=== PATIENT | male | born 1980 | race Caucasian/White ===

== ENCOUNTER → 2022-01-23 | Outpatient (CLI) | payer OTHER ==
[~2022-01-23] MED LIST: ALLERGY10 M1 PO; AMLODIPINE BESYL5 MG PO; ASPIRIN EC81 MG PO; ATORVASTATIN CA20 MG PO; DHEA25 M1 PO; DOXYCYCLINE HY100 MG PO; HYDROCHLOROTHIA25 MG PO; HYDROCHLOROTHIA50 MG PO; LOSARTAN POTASS25 MG PO; METOPROLOL SUCC50 MG PO; PROVENTIL HFA6.7 GM INH; VISTARIL 25 MG25 MG PO; VITAMIN D21250 MCG PO
== END ==
LOC: SLEEP 13:54
DX: G47.33 Obstructive sleep apnea (adult) (pediatric) (principal)
CPT/HCPCS: 95811